=== PATIENT | male | born 1935 ===

== ENCOUNTER 2022-03-06 05:56 | Day surgery (SDC) | payer OTHER ==
[~2022-03-06] VITALS: Ht 165.1 cm; Wt 68.9 kg
[~2022-03-06 05:56] MED LIST: ENALAPRIL MALEA10 MG PO; SIMVASTATIN
== END 2022-03-06 17:55 | disposition home or self-care (01) ==
LOC: CIR.AMB 05:56
PROVIDERS: ATTEND Surgery
DX: K40.90 Unilateral inguinal hernia, without obstruction or gangrene, not specified as recurrent (principal); I10 Essential (primary) hypertension; E78.5 Hyperlipidemia, unspecified; F17.210 Nicotine dependence, cigarettes, uncomplicated; Z20.822 Contact with and (suspected) exposure to COVID-19
CPT/HCPCS: 49650; C1781